=== PATIENT | male | born 1985 | race African-American/Black ===

== ENCOUNTER → 2020-05-11 | Outpatient (CLI) | payer BC | LOC: COL.RAD 09:00 | DX: E11.52 Type 2 diabetes mellitus with diabetic peripheral angiopathy with gangrene (principal); Z99.3 Dependence on wheelchair ==

== ENCOUNTER → 2020-05-27 | Outpatient (CLI) | payer BC ==
[2020-05-27 11:09] LABS: HEMOGLOBIN 11.4 g/dl (13.5-18.0); MEAN CELL VOLUME 89 fl (80.0-100.0); MEAN CORPUSCULAR HEMOGLOBIN 28 pg (27.0-31.0); MEAN CORPUSCULAR HGB CONC 32 g/dl (33.0-37.0); MEAN PLATELET VOLUME 11.5 fl (7.4-10.4); PLATELET COUNT 349 K/mm3 (130-400); RED BLOOD COUNT 4.02 M/mm3 (4.20-5.60); REDCELL DISTRIBUTION WIDTH-CV 16.1 % (11.5-14.5)
[2020-05-27 11:15] LABS: CALCIUM 9.8 mg/dL (8.4-10.2); CREATININE, serum 2.07 (0.66-1.25); POTASSIUM 4.3 mmol/L (3.4-5.0)
[2020-05-27 11:23] LABS: HEMATOCRIT 35.9 % (42.0-52.0)
== END ==
LOC: COL.RAD 09:57
DX: M48.04 Spinal stenosis, thoracic region (principal); M48.07 Spinal stenosis, lumbosacral region; K52.9 Noninfective gastroenteritis and colitis, unspecified; Z20.828 Contact with and (suspected) exposure to other viral communicable diseases

== ENCOUNTER 2020-06-01 14:21 | Inpatient (IN) | payer BC ==
[~2020-06-01] VITALS: Ht 175.3 cm; Wt 89.8 kg
[2020-06-01] MEDS ORDERED: PREDNISONE 2.52.5 MG PO (14:43)
[2020-06-01 15:47] LABS: MEAN CELL VOLUME 91 fl (80.0-100.0); MEAN CORPUSCULAR HGB CONC 32 g/dl (33.0-37.0); MEAN PLATELET VOLUME 11.5 fl (7.4-10.4); PLATELET COUNT 355 K/mm3 (130-400); RED BLOOD COUNT 3.36 M/mm3 (4.20-5.60); REDCELL DISTRIBUTION WIDTH-CV 16.2 % (11.5-14.5)
[2020-06-01 15:55] LABS: HEMATOCRIT 30.6 % (42.0-52.0); HEMOGLOBIN 9.7 g/dl (13.5-18.0); MEAN CORPUSCULAR HEMOGLOBIN 29 pg (27.0-31.0)
[2020-06-01 16:29] LABS: ALBUMIN 3.2 gm/dL (3.5-5.0); BILIRUBIN,TOTAL 0.2 mg/dL (0.0-1.0); C-REACTIVE PROTEIN 6.9 mg/dL (0.0-0.9); CALCIUM 9.4 mg/dL (8.4-10.2); CREATININE, serum 1.9 (0.66-1.25); POTASSIUM 3.9 mmol/L (3.4-5.0); TOTAL PROTEIN 6.8 gm/dL (6.4-8.2)
[2020-06-01 16:34] LABS: ANISOCYTOSIS 1+; EOSINOPHIL 1 % (0-4); HYPOCHROMIA 1+; LYMPHOCYTE 11 % (20.0-51.0); MYELOCYTE 1 % (0-0); NEUTROPHILS 87 % (42.0-75.2); PLATELET ESTIMATE NORMAL (NORMAL)
[2020-06-01 20:00] VITALS: BP 147/79; PULSE 92; TEMP 98.3
--- NOTE | 2020-06-01 20:45 | NUR ---
Pt arrived to floor around 2034, alert, oriented, roomair. Helped him settled to bed, call light is on reach. Will continue monitoring.
[2020-06-01 22:17] VITALS: BP 147/79; PULSE 94; TEMP 98.3
[2020-06-02 00:03] VITALS: BP 146/75; PULSE 95; TEMP 97.9
[2020-06-02] MEDS ORDERED: DESCOVY 200-251 EACH PO (00:30)
[2020-06-02] MEDS ORDERED: ISENTRESS HD600 MG (00:34)
[2020-06-02] MEDS ORDERED: SPORANOX100 MG PO (00:35)
[2020-06-02] MEDS ORDERED: MINIPRESS 1M1 MG/CAP PO (00:36)
[2020-06-02] MEDS ORDERED: SODIUM BICARBO650 MG PO (00:39)
[2020-06-02] MEDS ORDERED: NORVASC 5MG5 MG/TAB PO (00:40)
[2020-06-02] MEDS ORDERED: NATURAL C500 MG PO (00:41)
[2020-06-02] MEDS ORDERED: NEURONTIN300 MG/CAP PO (00:42)
--- NOTE | 2020-06-02 01:30 | NUR ---
Pt admission procedure completed and charted. Pt is A/O*4, diminished heart sound. No N/V/D, tingling, numbness, SOA, pain as per pt at this time. Meds provided as per MAR, tolerated well. Pt is settled on bed, call light is on reach. No further needs at this time.
[2020-06-02 04:00] VITALS: BP 157/77; PULSE 88; TEMP 98.1
--- NOTE | 2020-06-02 05:47 | NUR ---
Pt had an uneventful night, slept on and off through out the night. No further needs at this time.
[2020-06-02 07:16] LABS: MEAN CELL VOLUME 91 fl (80.0-100.0); MEAN CORPUSCULAR HGB CONC 31 g/dl (33.0-37.0); MEAN PLATELET VOLUME 11.3 fl (7.4-10.4); PLATELET COUNT 324 K/mm3 (130-400); RED BLOOD COUNT 3.03 M/mm3 (4.20-5.60); REDCELL DISTRIBUTION WIDTH-CV 16.2 % (11.5-14.5)
[2020-06-02 07:26] LABS: HEMOGLOBIN 8.7 g/dl (13.5-18.0); MEAN CORPUSCULAR HEMOGLOBIN 29 pg (27.0-31.0)
[2020-06-02 07:27] LABS: HEMATOCRIT 27.7 % (42.0-52.0)
[2020-06-02 07:37] LABS: CALCIUM 8.8 mg/dL (8.4-10.2); CREATININE, serum 1.7 (0.66-1.25); MAGNESIUM 1.5 mg/dL (1.6-2.3); POTASSIUM 3.8 mmol/L (3.4-5.0)
[2020-06-02 07:42] LABS: ANISOCYTOSIS 1+; BAND 2 % (0-10); EOSINOPHIL 1 % (0-4); LYMPHOCYTE 12 % (20.0-51.0); METAMYELOCYTE 1 % (0-0); NEUTROPHILS 83 % (42.0-75.2); PLATELET ESTIMATE NORMAL (NORMAL)
[2020-06-02 07:54] VITALS: BP 156/83; PULSE 89; TEMP 98.4
--- NOTE | 2020-06-02 10:42 | NUR ---
Pt assessment completed and charted. Medications administered per nov. Record release form signed in order for us to obtain records from [facility] and pt PCP. Pt A&O, on room air, breathing is even and unlabored, LS cta, denies SOB. Pt denies chest pain, dizziness, N/V. Pt has diarrhea/cdiff, on contact precautions. pt tolerated clear liquid diet this morning. LAC IV w/ NS at 125ml/hr running w/o difficulty. Pt has 1+ edema to BLE. Pt uses wheelchair in room, able to move himself in and out of WC w/ minimal assistance. Pt denies pain but states he has some nerve pain to feet. HRRR, pulses strong bilaterally. Pt called for assistance to bathroom, incontinent by time staff made it to room, incontinent care provided, pt able to assist in turning. NO further needs at this time.
[2020-06-02 10:48] LABS: CLOSTRIDIUM DIFF A/B NEG; CLOSTRIDIUM DIFF A/B INTERP NonToxigenic C.diff
[2020-06-02 12:20] VITALS: BP 157/88; PULSE 85; TEMP 98.2
--- NOTE | 2020-06-02 14:04 | NUR ---
LIZ met with the patient to discuss discharge plan. The patient lives alone in [place]. He states that his parents: Teja (ph#[phone]) and Fred (ph#[phone]) live in [place]. He reports independence with ADLs and is wheelchair bound. He utilizes his wheelchair. The patient's primary care provider is FAUSTINO Dawson and he receives his medications at [facility]. He reports no difficulties obtaining his meds. The patient does not have a DPOA-HC, but he was interested in obtaining a form. LIZ provided. He states that he is not and does not have any children. The patient plans to return home upon discharge. LIZ contacted the patient's mother to review d/c plan. She had no concerns for LIZ about the patient returning home. SW to continue to follow as needed.
[2020-06-02 15:45] VITALS: BP 160/87; PULSE 87; TEMP 98.4
--- NOTE | 2020-06-02 17:46 | NUR ---
pt doing ok, couple of episodes of diarrhea and incontinence throughout day. Home meds restarted. Pt "own meds" not currently here and unable to administer. Pt stated mom may be able to bring them. No sliding scale coverage needed today.
[2020-06-02 20:14] VITALS: BP 163/85; PULSE 97; TEMP 98.3
--- NOTE | 2020-06-02 21:00 | NUR ---
Pt a/ox4. Denies any pain or discomfort at this time. No nausea. IVF infusing to LAC, intact. Meds administered. Had x1 loose stool, pt cleaned and changed.WC at bedside. Contact precautions in place. NO needs or concerns at this time. Call light within reach. Water provided as requested.
[2020-06-03] VITALS (7 sets, daily range): BP systolic 144–163; BP diastolic 76–98; PULSE 77–101; TEMP 97.9–98.4
[2020-06-03 07:14] LABS: MEAN CELL VOLUME 89 fl (80.0-100.0); MEAN CORPUSCULAR HGB CONC 32 g/dl (33.0-37.0); MEAN PLATELET VOLUME 10.8 fl (7.4-10.4); PLATELET COUNT 362 K/mm3 (130-400); RED BLOOD COUNT 3.14 M/mm3 (4.20-5.60); REDCELL DISTRIBUTION WIDTH-CV 16.1 % (11.5-14.5)
[2020-06-03 07:18] LABS: HEMATOCRIT 27.9 % (42.0-52.0); HEMOGLOBIN 8.9 g/dl (13.5-18.0); MEAN CORPUSCULAR HEMOGLOBIN 28 pg (27.0-31.0)
--- NOTE | 2020-06-03 07:22 | NUR ---
Report given to KENNY Yarbrough.
[2020-06-03 07:31] LABS: CALCIUM 8.9 mg/dL (8.4-10.2); CREATININE, serum 1.65 (0.66-1.25); POTASSIUM 3.7 mmol/L (3.4-5.0)
[2020-06-03 07:50] LABS: BAND 6 % (0-10); EOSINOPHIL 1 % (0-4); LYMPHOCYTE 10 % (20.0-51.0); NEUTROPHILS 79 % (42.0-75.2); PLATELET ESTIMATE NORMAL (NORMAL)
--- NOTE | 2020-06-03 20:30 | NUR ---
Received report from KENNY Yarbrough. PT appears to be doing better today than yesterday. Pt also states feeling a little better now that diet had advanced to bland diet. Scheduled meds administered. IV to LAC intact with fluids infusing. Pt states having x3 loose stools today. Needs met at this time. Contact precuations remains in place. Call light within reach.
[2020-06-04 03:32] VITALS: BP 162/86; PULSE 103; TEMP 98
--- NOTE | 2020-06-04 05:23 | NUR ---
Pt had x2 incontinent of loose stools during this shift, pt cleaned and briefs changed. Meds administered. Needs attended too. Denies any discomfort. Call light within reach.
--- NOTE | 2020-06-04 07:09 | NUR ---
Report given to KENNY Mcgee.
[2020-06-04 07:10] LABS: BASO % 0.1 % (0.0-2.0); EOS # 0.3 (0.0-0.7); GRAN # 10.2 (1.4-6.5); GRAN % 73.6 % (42.2-75.2); LYMPH # 2.5 (1.2-3.4); LYMPH % 18.2 % (20.0-51.0); MEAN CELL VOLUME 89 fl (80.0-100.0); MEAN CORPUSCULAR HGB CONC 32 g/dl (33.0-37.0); MEAN PLATELET VOLUME 11.6 fl (7.4-10.4); MONO # 0.7 (0.1-0.6); MONO % 5.1 % (1.7-9.3); PLATELET COUNT 377 K/mm3 (130-400); RED BLOOD COUNT 3.03 M/mm3 (4.20-5.60); REDCELL DISTRIBUTION WIDTH-CV 16.1 % (11.5-14.5)
[2020-06-04 07:15] LABS: HEMOGLOBIN 8.5 g/dl (13.5-18.0); MEAN CORPUSCULAR HEMOGLOBIN 28 pg (27.0-31.0)
[2020-06-04 07:32] LABS: CALCIUM 8.8 mg/dL (8.4-10.2); CREATININE, serum 1.67 (0.66-1.25); MAGNESIUM 1.7 mg/dL (1.6-2.3); POTASSIUM 3.8 mmol/L (3.4-5.0)
[2020-06-04 07:37] VITALS: BP 160/93; PULSE 88; TEMP 98.1
--- NOTE | 2020-06-04 09:43 | NUR ---
Patient alert and oriented. itching his body continuously, resting in bed. expressed low appetite toward breakfast. Hospitalist discontinued NS 75mL/HR. Plan is for patient to work with OT and PT for a possible discharge on the 06/05/20.
[2020-06-04 11:49] VITALS: BP 175/95; PULSE 95; TEMP 98.1
[2020-06-04 17:52] VITALS: BP 143/56; PULSE 80; TEMP 98
--- NOTE | 2020-06-04 19:29 | NUR ---
REPORT GIVEN TO NIGHT NURSE ANIA.
[2020-06-04 20:43] VITALS: BP 137/69; PULSE 83; TEMP 98.3
[2020-06-04 23:25] VITALS: BP 140/73; PULSE 72; TEMP 98.1
--- NOTE | 2020-06-04 23:32 | NUR ---
Received report from KENNY Mcgee. Pt awake upon entry. Denies any pain or discomfort at this time. Meds administered. INT to LAC intact, flushed, dressing CDI. No needs or concerns at this time. Contact precautions remains in place. Call light within reach.
[2020-06-05 03:21] VITALS: BP 163/83; PULSE 82; TEMP 98.1
[2020-06-05 06:09] LABS: BASO % 0.2 % (0.0-2.0); EOS # 0.4 (0.0-0.7); EOS % 3.3 % (0-4.0); GRAN # 6.1 (1.4-6.5); LYMPH # 3.7 (1.2-3.4); LYMPH % 33.6 % (20.0-51.0); MEAN CELL VOLUME 89 fl (80.0-100.0); MEAN CORPUSCULAR HGB CONC 32 g/dl (33.0-37.0); MEAN PLATELET VOLUME 11.1 fl (7.4-10.4); MONO # 0.8 (0.1-0.6); MONO % 7.4 % (1.7-9.3); PLATELET COUNT 421 K/mm3 (130-400); RED BLOOD COUNT 3.25 M/mm3 (4.20-5.60); REDCELL DISTRIBUTION WIDTH-CV 16.1 % (11.5-14.5)
[2020-06-05 06:22] LABS: ALBUMIN 2.8 gm/dL (3.5-5.0); BILIRUBIN,TOTAL 0.1 mg/dL (0.0-1.0); CREATININE, serum 1.56 (0.66-1.25); POTASSIUM 3.6 mmol/L (3.4-5.0); TOTAL PROTEIN 6.3 gm/dL (6.4-8.2)
[2020-06-05 06:26] LABS: HEMOGLOBIN 9.2 g/dl (13.5-18.0); MEAN CORPUSCULAR HEMOGLOBIN 28 pg (27.0-31.0)
--- NOTE | 2020-06-05 06:50 | NUR ---
Meds administered. No complaints made. Call light within reach.
--- NOTE | 2020-06-05 07:32 | NUR ---
Report given to KENNY Shetty.
[2020-06-05] MEDS ORDERED: VANCOCIN H125 MG/CAP PO (08:08)
[2020-06-05 08:56] VITALS: BP 173/84; PULSE 67
--- NOTE | 2020-06-05 09:43 | NUR ---
Assessment complete. Patient sitting up watching television on entry. No complaints at this time. States he feels pretty good. He is aware of his plan of care, states his ride will not be here until tomorrow. IV site is CD&I, flushed well. No other needs were expressed at this time. Call light is in reach.
[2020-06-05 11:44] VITALS: BP 161/81; PULSE 86; TEMP 98
[2020-06-05 16:25] VITALS: BP 142/69; PULSE 68; TEMP 98.1
--- NOTE | 2020-06-05 17:11 | NUR ---
Patient has been stable with no needs most of the day. Discharage orders were put in early this morning and patient is still currently waiting on a ride. NO complaints of pain or discomfort. Continuing to monitor. Call light is in reach.
--- NOTE | 2020-06-05 18:15 | NUR ---
Patient left the floor at this time. Discharge instructions were discussed. No other questions or concerns.
== END 2020-06-05 19:07 | disposition home or self-care (01) | DRG 372 ==
LOC: COL.ER 14:21 → MEDICAL 18:42
PROVIDERS: Emergency Medicine; Physician Assistant; Student in an Organized Health Care Education/Training Program; ADMIT Internal Medicine
DX: A04.72 Enterocolitis due to Clostridium difficile, not specified as recurrent (principal); R65.10 Systemic inflammatory response syndrome (SIRS) of non-infectious origin without acute organ dysfunction; E87.2 Acidosis; I96 Gangrene, not elsewhere classified; N17.9 Acute kidney failure, unspecified; I12.9 Hypertensive chronic kidney disease with stage 1 through stage 4 chronic kidney disease, or unspecified chronic kidney disease; E11.22 Type 2 diabetes mellitus with diabetic chronic kidney disease; N18.30 Chronic kidney disease, stage 3 unspecified; E11.42 Type 2 diabetes mellitus with diabetic polyneuropathy; E87.8 Other disorders of electrolyte and fluid balance, not elsewhere classified; D63.1 Anemia in chronic kidney disease; E86.0 Dehydration; M48.00 Spinal stenosis, site unspecified; G62.9 Polyneuropathy, unspecified; Z79.899 Other long term (current) drug therapy; Z79.4 Long term (current) use of insulin
CPT/HCPCS: 99222-AI; 99233-AI; 99239; J1644; J3475; J7030; J7512

== ENCOUNTER 2020-12-10 05:18 | Day surgery (SDC) | payer BC ==
[2020-12-10] VITALS (7 sets, daily range): BP systolic 145–159; BP diastolic 81–91; PULSE 67–99; TEMP 98.4
[~2020-12-10 05:18] MED LIST: DESCOVY 200-251 EACH PO; ISENTRESS HD600 MG; MINIPRESS 1M1 MG/CAP PO; NATURAL C500 MG PO; NEURONTIN300 MG/CAP PO; NORVASC 5MG5 MG/TAB PO; PREDNISONE 2.52.5 MG PO; SODIUM BICARBO650 MG PO; SPORANOX100 MG PO; VANCOCIN H125 MG/CAP PO
[2020-12-10] MEDS ORDERED: LIORESAL 1010 MG/TAB PO (06:57)
[2020-12-10] MEDS ORDERED: DESCOVY 200-251 EACH PO (07:00)
[2020-12-10] MEDS ORDERED: ISENTRESS HD600 MG PO (07:02)
[2020-12-10] MEDS ORDERED: SPORANOX100 MG PO (07:03)
[2020-12-10] MEDS ORDERED: NORVASC 10MG10 MG PO (07:03)
[2020-12-10] MEDS ORDERED: COREG12.5 MG PO (07:04)
[2020-12-10] MEDS ORDERED: ROBAXIN 50500 MG/TAB PO (07:05)
[2020-12-10] MEDS ORDERED: SODIUM BICARBO650 MG PO (07:06)
[2020-12-10] MEDS ORDERED: MULTIPLE VITAMI1 TA5 PO (07:06)
[2020-12-10] MEDS ORDERED: NORCO 325 MG-51 TAB PO (08:51)
[2020-12-10] MEDS ORDERED: BACTRIM DS 8001 TAB PO (08:51)
--- NOTE | 2020-12-10 09:40 | NUR ---
Patient returns to room 7 per cart from PACU accompanied by Josie COX and arouses to verbal stimuli. Temp 98.4 and room air sats 98%. Foot of cart is elevated and bilateral foot dressings dry and ice bags in place to incisional sites. IV fluids infusing. Father in room. Siderails up x2 and call light in reach. Allowed to rest.
--- NOTE | 2020-12-10 09:55 | NUR ---
Resting and not disturbed.
--- NOTE | 2020-12-10 10:10 | NUR ---
Resting and room air sats 99%.
--- NOTE | 2020-12-10 10:25 | NUR ---
Continues to rest. Offers no complaints of pain or nausea.
--- NOTE | 2020-12-10 10:40 | NUR ---
Continues to rest.
--- NOTE | 2020-12-10 11:03 | NUR ---
Voids per urinal. Offers no complaints of pain or nausea.
--- NOTE | 2020-12-10 11:40 | NUR ---
More awake and glucose now 151. Room air sats 98%.
--- NOTE | 2020-12-10 12:15 | NUR ---
Drinking diet Sprite. Continues to deny pain or nausea.
--- NOTE | 2020-12-10 12:30 | NUR ---
IV discontinued and site is free of redness. Ride notified patient will be ready for discharge.
--- NOTE | 2020-12-10 13:00 | NUR ---
Patient dresses self. Continues to deny pain or nausea.
--- NOTE | 2020-12-10 13:25 | NUR ---
Dismissal instructions given and voices understanding of these.
--- NOTE | 2020-12-10 13:33 | NUR ---
Patient dismissed to home driven by father and taken to the front door per wheelchair and assisted into vehicle with instructions.
== END 2020-12-10 13:33 | disposition home or self-care (01) ==
LOC: SDCO 05:18
DX: E11.52 Type 2 diabetes mellitus with diabetic peripheral angiopathy with gangrene (principal); I96 Gangrene, not elsewhere classified; M48.00 Spinal stenosis, site unspecified; G89.29 Other chronic pain; M54.9 Dorsalgia, unspecified; Z20.822 Contact with and (suspected) exposure to COVID-19; Z79.899 Other long term (current) drug therapy; Z79.84 Long term (current) use of oral hypoglycemic drugs; Z21 Asymptomatic human immunodeficiency virus [HIV] infection status; Z83.3 Family history of diabetes mellitus; Z82.49 Family history of ischemic heart disease and other diseases of the circulatory system
CPT/HCPCS: J0690; J1100; J2250; J2405; J2704; J3010; J7030

== ENCOUNTER 2021-01-28 11:00 | Outpatient (RCR) | payer BC ==
[~2021-01-28 11:00] MED LIST changes: +BACTRIM DS 8001 TAB PO; +COREG12.5 MG PO; +ISENTRESS HD600 MG PO; +LIORESAL 1010 MG/TAB PO; +MULTIPLE VITAMI1 TA5 PO; +NORCO 325 MG-51 TAB PO; +NORVASC 10MG10 MG PO; +ROBAXIN 50500 MG/TAB PO
== END 2021-02-24 | disposition still patient (30) ==
LOC: MKS.ESL.PT
DX: G82.20 Paraplegia, unspecified (principal); G95.9 Disease of spinal cord, unspecified; R26.9 Unspecified abnormalities of gait and mobility; Z98.890 Other specified postprocedural states
CPT/HCPCS: G0283-GP